=== PATIENT | female | born 2005 | race Two or more races ===

== ENCOUNTER 2025-07-13 18:01 | Observation (INO) | payer OTHER, MEDICAID ==
[~2025-07-13] VITALS: Ht 165.1 cm; Wt 86.3 kg
[2025-07-13 18:20] VITALS: PULSE 86; RESP 14; O2SAT 98
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
[2025-07-13 19:46] LABS: Urine Protein, UAD Negative (Negative)
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
[2025-07-13 20:20] VITALS: BP 108/60; PULSE 84; RESP 16; TEMP 98.6; O2SAT 96
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
== END 2025-07-13 23:07 | disposition home or self-care (01) ==
LOC: EDBD 18:01 → ER 18:01 → LDRP 20:41
PROVIDERS: ADMIT Obstetrics & Gynecology; ATTEND Obstetrics & Gynecology
DX: O26.893 Other specified pregnancy related conditions, third trimester (principal); R10.32 Left lower quadrant pain; Z3A.33 33 weeks gestation of pregnancy; V89.2XXA Person injured in unspecified motor-vehicle accident, traffic, initial encounter; Y93.89 Activity, other specified; Y92.410 Unspecified street and highway as the place of occurrence of the external cause; Y99.8 Other external cause status; Z79.899 Other long term (current) drug therapy; Z98.890 Other specified postprocedural states
CPT/HCPCS: 36415; 59025; 76805; 76817; 81001; 81002; 84702; 94760; 99284; A4649; G0378